=== PATIENT | male | born 1955 | race Caucasian/White ===

== ENCOUNTER 2022-10-05 10:01 | Outpatient (CLI) | payer MEDICARE, BC, SELFPAY ==
--- NOTE | 2022-10-05 10:00 | RT.EKG_ITS ---
APPROVED REPORT Exam: Resting ECG Reason for Exam: irregular heart rate Patient Location: O HR:60 bpm ECG Measurements Heart Rate 60 AXIS ND 180 P 58 QRSd 95 QRS 25 QT 435 T 51 QTc 435 Conclusion Sinus rhythm...normal P axis, V-rate 50- 99 Atrial premature complex...SV complex w/ short R-R interval Probable left atrial enlargement...P >50mS, <-0.10mV V1
== END 2022-10-05 10:02 | disposition home or self-care (01) ==
LOC: DI.CM 10:03
PROVIDERS: PCP Nurse Practitioner Family; Visit Provider Nurse Practitioner Family
DX: I49.9 Cardiac arrhythmia, unspecified (principal)
CPT/HCPCS: 93010

== ENCOUNTER 2022-10-26 00:16 | Outpatient (CLI) | payer MEDICARE, BC, SELFPAY ==
--- NOTE | 2022-10-26 07:15 | DI.CTLCSR_ITS ---
Exam(s) CT CHEST LUNG CANCER SCREEN EXAM: CT CHEST LUNG CANCER SCREEN CLINICAL HISTORY: Screening for lung cancer,current smoker, F17.210 TECHNIQUE: Imaging Protocol: Axial computed tomography images with coronal and sagittal reformatted images were created and reviewed. Low dose screening protocol. COMPARISON: No exams were available for comparison FINDINGS: Tracheobronchial tree: No bronchiectasis or mucus plugging.. Mediastinum and Monik: No dominant adenopathy or fluid collection. Pulmonary parenchyma: No consolidation or dominant measurable mass. Mild emphysematous changes. Lung Nodules: None. Pleura: No effusion. No pneumothorax. Heart: The heart is not dilated. Mild coronary artery calcifications are seen. Aorta: Thoracic aorta non-dilated. Upper abdomen: Unremarkable. Bones: Unremarkable for age. Soft Tissues: Unremarkable. IMPRESSION: No suspicious pulmonary nodules. Lung RADS Cat 1 - Negative: No nodules and definitely benign nodules Lung-RADS 1.0 CATEGORIES: Category 0 - Prior chest CT exam(s) being located for comparison. Category 1 - Annual screening in 12 months. No nodules or definitely benign nodules. Category 2 - Annual screening in 12 months. Benign appearance. Nodules with low likelihood of becomin g active cancer. Category 3 - 6-month follow-up. Probably benign. Short-term follow-up suggested. Nodules with low lik elihood of becoming active cancer. Category 4A - 3-month follow-up and CT/PET if >8 mm in size. Suspicious finding. Findings which requi re additional testing. Category 4B - Findings which require additional testing and tissue sampling. Category 4X - Category 3 or 4 nodules with additional features or imaging findings that increases the suspicion of malignancy. Modifier S- Potentially clinically significant findings (non lung cancer) RADIATION DOSE DELIVERED: 99.48mGy.cm Total DLP DATA REPOSITORY: All CT scans at this facility are submitted to the National Radiology Data Registry (NRDR) Dose Index Registry (DIR) with the [employer] (ACR). RADIATION OPTIMIZATION: All CT scans at this facility use at least one of these dose optimization te chniques: automated exposure control; mA and/or kV adjustment per patient size (includes targeted exa ms where dose is matched to clinical indication); or iterative reconstruction.
== END 2022-10-26 00:36 ==
LOC: DI 00:16
PROVIDERS: PCP Nurse Practitioner Family; Visit Provider Nurse Practitioner Family
DX: F17.210 Nicotine dependence, cigarettes, uncomplicated (principal); Z12.2 Encounter for screening for malignant neoplasm of respiratory organs
CPT/HCPCS: 71271

== ENCOUNTER 2023-02-18 09:05 | Outpatient (CLI) | payer MEDICARE, BC, SELFPAY ==
[2023-02-18 12:47] LABS: ALT 47 U/L (16-63); AST 23 U/L (15-37); Albumin 3.7 g/dL (3.4-5.0); Alkaline Phosphatase 103 U/L (46-116); Anion Gap 10.1 mmol/L (3-11); BUN 13 mg/dL (7-18); Bilirubin, Total 0.4 mg/dL (0.2-1.0); CO2 23.9 mmol/L (21.0-32.0); CREATININE 1.1 mg/dL (0.70-1.30); Calcium 9.6 mg/dL (8.5-10.1); Calculated LDL 105 mg/dL (<100); Chloride 104 mmol/L (98-107); Cholesterol 194 mg/dL (<200); Glucose 120 mg/dL (74-106); HDL Cholesterol 36 mg/dL (40-60); Potassium 4.5 mmol/L (3.5-5.1); Sodium 138 mmol/L (136-145); Total Protein 7.5 g/dL (6.4-8.2); Triglyceride 267 mg/dL (<150)
[2023-02-19 09:39] LABS: HIV-1/2 Ag & Ab Screen Negative (Negative)
[2023-02-19 09:51] LABS: Hepatitis C Ab w Rflx HCV PCR Negative (Negative)
== END 2023-02-18 09:06 | disposition home or self-care (01) ==
LOC: LOS 09:05
PROVIDERS: PCP Nurse Practitioner Family; Referring Provider Nurse Practitioner Family; Visit Provider Nurse Practitioner Family
DX: Z13.220 Encounter for screening for lipoid disorders (principal); Z11.4 Encounter for screening for human immunodeficiency virus [HIV]; Z13.1 Encounter for screening for diabetes mellitus; Z11.59 Encounter for screening for other viral diseases
CPT/HCPCS: 36415; 80053; 80061; 86803; 87389

== ENCOUNTER 2023-02-18 09:09 | Outpatient (CLI) | payer MEDICARE, BC, SELFPAY ==
--- NOTE | 2023-02-18 09:00 | RT.EKG_ITS ---
APPROVED REPORT Exam: Resting ECG Reason for Exam: pre op exam Patient Location: O HR:57 bpm ECG Measurements Heart Rate 57 AXIS MO 192 P 50 QRSd 89 QRS 6 QT 434 T 51 QTc 423 Conclusion Sinus rhythm...normal P axis, V-rate 50- 99 Normal Electrocardiogram
== END 2023-02-18 09:10 | disposition home or self-care (01) ==
LOC: DI.CM 09:09
PROVIDERS: PCP Nurse Practitioner Family; Visit Provider Nurse Practitioner Family
DX: Z01.818 Encounter for other preprocedural examination (principal)
CPT/HCPCS: 93010

== ENCOUNTER 2023-04-05 11:47 | Day surgery (SDC) | payer MEDICARE, BC, SELFPAY ==
[2023-04-05] VITALS (7 sets, daily range): BP systolic 125–143; BP diastolic 63–100; PULSE 66–75; RESP 18–27; TEMP 36.2–36.5; O2SAT 90–95; BMI 36.6
--- NOTE | 2023-04-05 08:43 | HPE_ITS ---
Assessment and Plan Assessment and plan (1) Posterior subcapsular polar age-related cataract, right eye: Status: Acute Assessment and plan: Assessment: Visually significant cataract of the right eye. Plan: Cataract extraction with lens implantation of the right eye. (2) Nuclear age-related cataract, right eye: Status: Acute Assessment and plan: Assessment: Visually significant cataract of the right eye. Plan: Cataract extraction with lens implantation of the right eye. (3) Posterior subcapsular age-related cataract of left eye: Status: Acute Assessment and plan: Assessment: Visually visually significant cataract of the left eye. Plan: Cataract extraction with lens implantation of the left eye. (4) Nuclear age-related cataract, left eye: Status: Acute Assessment and plan: Assessment: Visually visually significant cataract of the left eye. Plan: Cataract extraction with lens implantation of the left eye History of Present Illness History of Present Illness Chief Complaint: Progressive decreased vision both eyes Narrative: Patient is a 67-year-old male with history of progressive decreased vision in both eyes at both distance and near. He notes significant difficulty seeing road signs, especially at night. He has difficulty reading and cannot read small numbers. He also has difficulty seeing his computer. On examination he was noted to have visual acuity of 20/100 OD, 20/50 OS in the presence of nuclear and posterior subcapsular cataract. The option of cataract surgery was offered to the patient and he wished to proceed. Review of Systems All systems reviewed & are unremarkable except as noted in HPI and below PFSH All Active Problems Posterior subcapsular polar age-related cataract, right eye (Acute) Nuclear age-related cataract, right eye (Acute) Posterior subcapsular age-related cataract of left eye (Acute) Nuclear age-related cataract, left eye (Acute) Elevated blood pressure reading without diagnosis of hypertension (Acute) PAC (premature atrial contraction) (Acute) Left ear impacted cerumen (Acute) Establishing care with new doctor, encounter for (Acute) Surgical History Hx of appendectomy Family History Mother , 98 No problems noted. Father , 70 No problems noted. Sister No problems noted. Maternal Grandmother , 70's Leukemia Social History Smoking/Tobacco Use Status: Current every day Tobacco Type: cigarettes Tobacco: How many years used: 50 Quit status: not considering quitting Smoking risk assessment performed?: Yes Alcohol Intake: current Alcohol Intake frequency: a few times a week Alcohol type: beer, wine and hard liquor Drug use: Rarely Substance use type: marijuana Caregiver/Support person: No Household members: none Housing: house Communication Needs: None Pets and animals: No Sexually active: No Do you think of yourself as: straight/heterosexual What is your relationship status?: How often do you talk on the phone with friends or family?: decline to answer Panel score (0-1 are the most socially isolated patients): 0 What type of physical activity do you participate in: none Frequency: does not exercise Seatbelt use: always Drive intox or ride w/intox street flusher driver: No Do you feel safe at home: Yes Additional Social history: lives alone Meds Allergies and Home Medications Allergies Allergy/AdvReac Type Severity Reaction Status Date / Time No Known Allergies Allergy Verified 04/05/23 12:25 Home Medications Medication Instructions Recorded Confirmed Type rosuvastatin 10 mg tablet 10 mg PO DAILY #90 tabs 03/05/23 04/05/23 Rx Exam Eyes Other: Most recent ocular examination is significant for uncorrected visual acuity of 20/100 OD, 20/50 OS, correctable to 20/50 OD, 20/30 OS. Extract motility are normal. Pupillary exam is normal. Intraocular pressure is 18 OU. Slit-lamp examination reveals moderate nuclear cataract with severe posterior subcapsular cataract in the right eye. A mild nuclear with posterior subcapsular cataract is present in the left eye. Funduscopic examination shows disc cupping of 0.35 OU with normal vessels, macula, peripheral retina and vitreous. Resp Auscultation: clear to auscultation bilaterally Cardio Rate: regular rate Rhythm: regular rhythm
[2023-04-05] MEDS: Tropicam./Phenyleph. (1/2.5%) 5 ML BTL OU ×3 (12:30→12:52)
--- NOTE | 2023-04-05 12:34 | W.ANESPRE ---
General Info Date of Service Date Performed: 04/05/23 Height: 5 ft 11 in Weight: 119.295 kg Body Mass Index (BMI): 36.6 Surgical Procedure: Operation Date: 04/05/23 15:55 Proposed Procedure Side Surgeon p Cataract Extraction with IOL Implant Bilateral Van Barrios MD Meds Allergies and Home Medications Allergies Allergy/AdvReac Type Severity Reaction Status Date / Time No Known Allergies Allergy Verified 04/05/23 12:25 Home Medication Medication Instructions Recorded rosuvastatin 10 mg tablet 10 mg PO DAILY #90 tabs 03/05/23 Current Visit Medications: Current Medications Generic Name Dose Route Start Last Admin Trade Name Freq PRN Reason Stop Dose Admin Acetaminophen 1,000 mg 04/05/23 06:00 Acetaminophen 500 Mg Tab PO 05/05/23 05:59 Q4H PRN PRN Balanced Salt Solution 500 ml 04/05/23 06:00 Balanced Salt Soln.-Plus 500 Ml Bag OP 05/05/23 05:59 DIRECTED DEBORAH Ringer's Solution 1,000 mls @ 80 mls/hr 04/05/23 10:15 IV 05/05/23 10:14 INFUSION DEBORAH Miscellaneous Medication 0 ml 04/05/23 06:00 Prednisolone 1%, Moxifloxacin 0.5%, Nepafenac 0.1% 5ml Btl OU 05/05/23 05:59 DIRECTED DEBORAH Miscellaneous Medication 0 ml 04/05/23 06:00 Tropicam./Phenyleph. (1/2.5%) 5 Ml Btl OU 05/05/23 05:59 DIRECTED DEBORAH Tetracaine HCl 0 ml 04/05/23 06:00 Tetracaine 0.5% 4 Ml Btl OU 05/05/23 05:59 DIRECTED DEBORAH PFSH Active Problems Active Problems: Problem Status Onset Code Posterior subcapsular polar age-related cataract, right eye H25.041 Nuclear age-related cataract, right eye H25.11 Posterior subcapsular age-related cataract of left eye H25.042 Nuclear age-related cataract, left eye H25.12 Elevated blood pressure reading without diagnosis of hypertension R03.0 PAC (premature atrial contraction) I49.1 Left ear impacted cerumen H61.22 Establishing care with new doctor, encounter for Z76.89 Surgical History Surgical History Hx of appendectomy Tobacco Smoking/Tobacco Use Status: Current every day Tobacco Type: cigarettes Alcohol Alcohol Intake: current Alcohol intake frequency: a few times a week Alcohol type: beer, wine and hard liquor Substance Use Substance use: Rarely Substance use type: marijuana Vital Signs and Lab Results Lab Results Blood Type / Crossmatch: No Data to Display Complete Blood Count: No Data to Display Complete Metabolic Panel: No Data to Display Liver Function Panel: No Data to Display Coagulation Panel: No Data to Display Cardiac Panel: No Data to Display Arterial Blood Gas: No Data to Display Venous Blood Gas: No Data to Display Pancreas Panel: No Data to Display Thyroid Panel: No Data to Display Infectious Disease: No Data to Display Blood Cultures: No Data to Display Toxicology Panel: No Data to Display Anesthesia Assessment and Plan Anesthesia History Personal History: No History of Anesthesia Complications Family History: No Family History of Anesthesia Complications Exercise Tolerance Exercise Tolerance: Metabolic Equivalents>4 Pertinent Negatives Pertinent Negatives: No Symptoms of GERD Cardiac & Pulmonary Exam Cardiac Exam: Normal S1/S2 Heart Sounds Pulmonary Exam: Clear Bilateral Breath Sounds Implantable Cardiac Device Does patient have a Pacemaker or an ICD?: No Airway Exam Known Difficult Airway: No Mallampati Class: 2 Mouth Opening: Normal (> 3cm) Thyromental Distance: Greater than 3 cm Facial Hair: Full [place]dana Neck Range of Motion: Full ROM Neck Circumference: Thick Teeth Condition: Normal Dentition ASA Classification ASA Score: ASA 2 Emergency Case?: No NPO Status NPO Status: NPO Clears >2 hours, Solids >8 hours Anesthesia Plan Resuscitation Status: Full Code Anesthesia Technique: General Anesthesia Airway Planned: LMA Monitors Used: Standard Monitors Preoperative Comments:: Smokes 2-3pks/day & heavy daily ETOH
[2023-04-05] MEDS: Lactated Ringers 1,000 ML 80 ML IV (12:46)
[2023-04-05] MEDS: Balanced Salt Soln.-PLUS 500 ML BAG OP (13:06)
[2023-04-05] MEDS: Tetracaine 0.5% 4 ML BTL OU (13:09)
[2023-04-05] MEDS: Duovisc Viscoelastic System EACH 1 EACH ×2 (13:10→13:24)
[2023-04-05] MEDS: Lidocaine 1% Pres-Free 5 ML VIAL ×2 (13:11→13:24)
[2023-04-05] MEDS: Phenylephrine/Lidocaine (15/10) MG/ML 1 ML VIAL ×2 (13:14→13:26)
[2023-04-05] MEDS: Povidone-Iodine Ophth 30 ML BTL ×2 (13:15→13:26)
[2023-04-05] MEDS: Trypan Blue 0.06% 0.5 ML SYR (13:16)
--- NOTE | 2023-04-05 14:10 | ROE_ITS ---
Date of service: 04/05/23 Time of Service: 14:10 Operative Note Operative Note DATE OF PROCEDURE: 07/03/21 PRE-OP DIAGNOSIS: Nuclear/posterior subcapsular cataract, both eyes POST-OP DIAGNOSIS: same PROCEDURE: Immediately sequential bilateral cataract extraction using phacoemulsification with intraocular lens implants, both eyes SURGEON: Van Barrios Refer to Anesthesia Record PATHOLOGY: none sent COMPLICATIONS: None Patient was transported to: same day Patient's condition: stable Implants: Lopez Clareon [id number] intraocular lenses both eyes Indications: Progressive decreased vision due to cataract, both eyes Procedure Description: CATARACT SURGERY OPERATIVE REPORT PREOPERATIVE DIAGNOSIS: Nuclear/posterior subcapsular cataract, both eyes POSTOPERATIVE DIAGNOSIS: Same OPERATION: Bilateral sequential cataract extraction using phacoemulsification with posterior chamber intraocular lens implant, both eyes IOL OS: IOL Air Brakes Inspector/Model: Lopez Clareon [id number] IOL Power: + 22.5 diopters IOL Serial Number: [id number] Optic Diameter: 6.0mm Haptic/Overall Diameter: 13.0mm PHACO INFO OS: Lopez Centurion Vision System with OZil and Active Fluidics Cumulative Dispersed Energy (CDE): 8.93 seconds IOL OD: IOL Air Brakes Inspector/Model: Lopez Clareon [id number] IOL Power: + 22.5 diopters IOL Serial Number: [id number] Optic Diameter: 6.0mm Haptic/Overall Diameter: 13.0mm PHACO INFO OD: Lopez Centurion Vision System with OZil and Active Fluidics Cumulative Dispersed Energy (CDE): 13.63 seconds SURGEON: Van Barrios MD, FLOYD ANESTHESIA: General/laryngeal mask airway monitored Anesthesia Care (MAC), with local sub- tenon's anesthetic infiltration COMPLICATIONS: None SPECIMENS: None INDICATIONS FOR PROCEDURE: The patient is a 67-year-old male with history of diminished visual acuity in both eyes secondary to the development of nuclear/posterior subcapsular cataract, right eye worse than left. He is significantly symptomatic that he desires cataract surgery and attempt to improve and maximize his vision. He is unable to tolerate cataract surgery under local anesthesia with or without sedation, so general anesthesia is planned. See office notes for detailed information. PROCEDURE: The correct surgical eye was identified and marked as both eyes and the pupils were dilated in the preoperative area using mydriatics and cycloplegics. The dilated pupil size was 8.0 mm.. The patient was brought to the operating room where cardiopulmonary monitoring was applied and general/LMA anesthesia instituted and a surgical time-out was performed confirming the correct operative eye and IOL power of each eye. Attention was first directed to the right eye. Topical anesthesia was administered and ophthalmic povidone-iodine 5% was instilled into the conjunctival fornices. The amber-ocular area was prepped with Betadine 10% solution and draped in the usual sterile fashion for intraocular surgery, including an aperture drape. A Tegaderm transparent film dressing was cut in half and used to cover the lashes and lid margins. Care was taken to sequester the lashes and lid margins under the Tegaderm dressing. A lid speculum was placed between the lids of the operative eye and the Aubrey-Franky operating microscope was maneuvered into position. Tony scissors were then used to make a conjunctival buttonhole approximately 6mm posterior to the limbus in the inferonasal quadrant. Blunt dissection was carried out to expose bare sclera, and a blunt-tipped sub-tenon?s anesthesia cannula was introduced and passed posteriorly along the globe where non- preserved plain lidocaine was injected into posterior sub-Tenon?s space. A sideport knife was used to make a paracentesis port.. VisionBlue was injected into the anterior chamber allowed to sit for 20 seconds. Intraocular phenylephrine/lidocaine was injected into the anterior chamber. The anterior chamber was filled with viscoelastic. . A keratome knife was used to construct a temporal clear corneal tunnel extending approximately 2.0mm into clear cornea.. A flap was raised on the anterior capsule and capsulorhexis forceps were used to complete a continuous curvilinear capsulorhexis of 5.0 mm. Balanced salt solution was then used to perform cortical cleaving hydrodissection and nuclear hydrodelineation until the lens could be freely rotated within the capsular bag. The lens nucleus was then disassembled and removed within the capsular bag and iris plane using phacoemulsification. Residual cortical material was removed using the 45-degree angled silicone I/A tip with 0.3mm port. The posterior capsule was carefully polished to remove as much residual lens epithelial cells as safely possible. The capsular bag was then inflated and the anterior chamber deepened with cohesive viscoelastic. The lens implant described above was inserted into the capsular bag using the Lopez Autonome pre-loaded injector.. A Kuglen hook was used to dial the IOL into position. Residual viscoelastic was then removed first from posterior to the IOL, then from the anterior chamber using the I/A handpiece. The lens implant was noted to center nicely within the capsular bag. The incisions were stromally hydrated, and the anterior chamber was reformed using BSS. Then 0.4cc of moxifloxacin 1.5mg/ml were injected into the capsular bag and anterior chamber. The incisions were checked with a Weck spear and found to be secure. Several drops of ophthalmic povidone-iodine 5% were then applied to the eye followed by two drops of Imprimis combination antibiotic/steroid/NSAID solution. The drapes were removed and a clear plastic protective eye shield was placed over the eye. Attention was then directed toward the left eye, where an entirely new set of instruments, tubing, medications, fluids, gowns, gloves, and drapes were used. Topical anesthesia was administered and ophthalmic povidone-iodine 5% was instilled into the conjunctival fornices. The amber-ocular area was prepped with Betadine 10% solution and draped in the usual sterile fashion for intraocular surgery, including an aperture drape. A Tegaderm transparent film dressing was cut in half and used to cover the lashes and lid margins. Care was taken to sequester the lashes and lid margins under the Tegaderm dressing. A lid speculum was placed between the lids of the operative eye and the Aubrey-Franky operating microscope was maneuvered into position. Tony scissors were then used to make a conjunctival buttonhole approximately 6mm posterior to the limbus in the inferonasal quadrant. Blunt dissection was carried out to expose bare sclera, and a blunt-tipped sub-tenon?s anesthesia cannula was introduced and passed posteriorly along the globe where non- preserved plain lidocaine was injected into posterior sub-Tenon?s space. A sideport knife was used to make a paracentesis port.. Intraocular phenylephrine/lidocaine was injected into the anterior chamber. The anterior chamber was filled with viscoelastic. . A keratome knife was used to construct a temporal clear corneal tunnel extending approximately 2.0mm into clear cornea.. A flap was raised on the anterior capsule and capsulorhexis forceps were used to complete a continuous curvilinear capsulorhexis of 5.0 mm. Balanced salt solution was then used to perform cortical cleaving hydrodissection and nuclear hydrodelineation until the lens could be freely ro tated within the capsular bag. The lens nucleus was then disassembled and removed within the capsular bag and iris plane using phacoemulsification. Residual cortical material was removed using the 45-degree angled silicone I/A tip with 0.3mm port. The posterior capsule was carefully polished to remove as much residual lens epithelial cells as safely possible. The capsular bag was then inflated and the anterior chamber deepened with cohesive viscoelastic. The lens implant described above was inserted into the capsular bag using the Lopez Autonome pre-loaded injector.. A Kuglen hook was used to dial the IOL into position. Residual viscoelastic was then removed first from posterior to the IOL, then from the anterior chamber using the I/A handpiece. The lens implant was noted to center nicely within the capsular bag. The incisions were stromally hydrated, and the anterior chamber was reformed using BSS. Then 0.4cc of moxifloxacin 1.5mg/ml were injected into the capsular bag and anterior chamber. The incisions were checked with a Weck spear and found to be secure. Several drops of ophthalmic povidone-iodine 5% were then applied to the eye followed by two drops of Imprimis combination antibiotic/steroid/NSAID solution. The drapes were removed and a clear plastic protective eye shield was placed over the eye. The patient was then returned to Same Day Surgery in stable condition.
--- NOTE | 2023-04-05 14:52 | W.ANESPOSTOP ---
Postoperative Evaluation Date, Time and Location Date Performed: 04/05/23 Time Performed: 14:52 Patient Location: Day Surgery Unit Vital Signs Most Recent Imported Vital Signs: Most Recent Vital Signs Temp Pulse Resp BP Pulse Ox 36.2 C L 70 26 H 127/92 H 92 04/05/23 14:19 04/05/23 14:19 04/05/23 14:19 04/05/23 14:19 04/05/23 14:19 Assessment Mental Status: Awake (Alert & Oriented to Patient Baseline) Airway and Respiratory Function: Patent airway with normal (patient baseline) respiratory exam Cardiovascular Function: Hemodynamically Stable Hydration Status: Adequately Hydrated Nausea & Vomiting: No Nausea or Vomiting Pain: Pt. Denies Any Pain Peripheral Nerve Block: Patient did not receive a nerve block
== END 2023-04-05 15:30 | disposition home or self-care (01) ==
LOC: SUR 11:47
PROVIDERS: PCP Nurse Practitioner Family; Visit Provider Ophthalmology
PROC: (CPT 66984; principal; 2023-04-05 15:45)
DX: H25.041 Posterior subcapsular polar age-related cataract, right eye (principal); H25.11 Age-related nuclear cataract, right eye; H25.042 Posterior subcapsular polar age-related cataract, left eye
CPT/HCPCS: 66984; 00123; V2632; J1100; J2001; J2250; J2405; J2704

== ENCOUNTER 2024-05-08 22:14 | Outpatient (REF) | payer MEDICARE, BC, SELFPAY ==
[2024-05-08 22:22] LABS: ALT 45 U/L (16-63); AST 29 U/L (15-37); Albumin 3.9 g/dL (3.4-5.0); Alkaline Phosphatase 113 U/L (46-116); Anion Gap 10.5 mmol/L (3-11); BUN 16 mg/dL (7-18); Bilirubin, Total 0.61 mg/dL (0.2-1.0); CO2 25.5 mmol/L (21.0-32.0); Calcium 9.4 mg/dL (8.5-10.1); Calculated LDL 42 mg/dL (<100); Chloride 105 mmol/L (98-107); Cholesterol 152 mg/dL (<200); Estimated GFR 83.01 (mL/min/1.73m2); Glucose 103 mg/dL (74-106); HDL Cholesterol 37 mg/dL (40-60); Potassium 4.6 mmol/L (3.5-5.1); Sodium 141 mmol/L (136-145); Total Protein 7.4 g/dL (6.4-8.2); Triglyceride 366 mg/dL (<150)
[2024-05-08 22:28] LABS: Hemoglobin A1C 5.7 % (<5.7)
[2024-05-08 22:45] LABS: COMMENT (LAB VIEW ONLY) 81.06 mg/dL; Microalb ug/mg Crea 6.8 ug/mg Cr
== END 2024-05-08 22:15 | disposition home or self-care (01) ==
LOC: LBN 22:14
PROVIDERS: PCP Nurse Practitioner Family; Visit Provider Nurse Practitioner Family
DX: R73.9 Hyperglycemia, unspecified (principal); E78.5 Hyperlipidemia, unspecified; I10 Essential (primary) hypertension
CPT/HCPCS: 80053; 80061; 82043; 82570; 83036

== ENCOUNTER 2024-06-22 10:26 | Outpatient (CLI) | payer MEDICARE, BC, SELFPAY ==
[2024-06-22 12:30] LABS: BUN 14 mg/dL (7-18); CREATININE 1.2 mg/dL (0.70-1.30); Calcium 9.7 mg/dL (8.5-10.1); Chloride 105 mmol/L (98-107); Glucose 128 mg/dL (74-106); Potassium 4.8 mmol/L (3.5-5.1); Sodium 141 mmol/L (136-145)
== END 2024-06-22 10:27 | disposition home or self-care (01) ==
LOC: LOS 10:26
PROVIDERS: PCP Nurse Practitioner Family; Referring Provider Nurse Practitioner Family; Visit Provider Nurse Practitioner Family
DX: I10 Essential (primary) hypertension (principal)
CPT/HCPCS: 36415; 80048